=== PATIENT | male | born 1945 | race Caucasian/White ===

== ENCOUNTER 2017-01-10 11:14 | Outpatient (POV) | payer MEDICARE, OTHER, SELFPAY | END 2017-01-10 12:21 | disposition home or self-care (01) | PROVIDERS: Visit Provider Podiatrist | DX: M72.2 Plantar fascial fibromatosis (principal) | CPT/HCPCS: 99202; 73630 ==

== ENCOUNTER 2017-09-25 15:00 | Outpatient (RCR) | payer MEDICARE, SELFPAY | END 2017-10-11 11:29 | disposition home or self-care (01) | LOC: PT 15:00 | PROVIDERS: PCP Internal Medicine Adolescent Medicine; Visit Provider Family Medicine | DX: M25.512 Pain in left shoulder (principal) | CPT/HCPCS: 97110; 97163 ==

== ENCOUNTER 2020-03-11 13:00 | Outpatient (RCR) | payer MEDICARE, SELFPAY ==
--- NOTE | 2020-01-28 18:58 | HMH.SLDYSPHA ---
Speech & Language Evaluation Speech/Language Dysphagia Evaluation Start: 01/28/20 18:00 Freq: ONCE Status: Active Protocol: Document 01/28/20 18:00 JONI (Rec: 01/28/20 18:34 CMAY [id number]) Dysphagia Assess/Goals/Plan Assessment Date of Evaluation: 01/28/20 Evaluation Type Initial Certification Assessment/Problems Dysphagia Does Patient Qualify for Service Yes Qualify/Failure Comment According to the results of today's evaluation, Mr. 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 Recommendations PHYSICIAN CERTIFICATION: The specified therapy services are required, authorized, and reviewed every 30 days. Pt will be seen # times/week 2 for # weeks 12 Diet Recommendations Pureed Liquid Type Recommendations Normal/Thin SL Swallow Guidelines High aspiration risk,Chk mough for pocketing,Crush meds as allowed*,Eat at slow rate Dysphagia Swallow Precautions/Strategies Sitting Upright (90 deg),Small Bites and Sips Plan Anticipate reaching STG in # weeks 8 Anticipate reaching LTG in # weeks 12 Pt/Guardian verbally ack understanding Yes of dx/prognosis/goals Pt/Guardian verbally ack understanding Yes of/consent to tx prog G -code Required No STG-Other Comment/Non-Specific 1.) ST will receive report from MBSS completed at on 01/24/2020 and make further recommendations to treatment, diet, strategies, etc. as needed and discuss them with Mr. Ross. Mr. Ross will demonstrate compliance with recommendations made as evidenced by verbal report from him and his . 2.) (Following when MBSS report is received by ST) Mr. Ross will participate in oral motor exercises and swallowing exercises to improve his swallowing function. 3.) (Following when MBSS report is received by ST) Mr. Ross will participate in diet tolerance with strategies /techniques provided. 4.) Mr. Ross will co
== END 2020-03-11 13:05 | disposition home or self-care (01) ==
LOC: ST 13:00
PROVIDERS: PCP Internal Medicine Adolescent Medicine; Visit Provider Internal Medicine
DX: Z91.89 Other specified personal risk factors, not elsewhere classified (principal)
CPT/HCPCS: 92526; 92610